=== PATIENT | male | born 1990 | race Caucasian/White ===

== ENCOUNTER 2016-12-15 11:51 | Emergency (ER) | payer BC, OTHER ==
[2016-12-15 12:03] VITALS: BP 141/74
[2016-12-15] MEDS ORDERED: ceFAZolin 1 GM Vial IM ONE (12:12)
[2016-12-15] MEDS ORDERED: Diphtheria,Pertussis(Acell),Tetanus Vaccine 0.5 ML SDV IM ONE (12:14)
--- NOTE | 2016-12-15 12:20 | EDM.PDOC ---
ED HPI GENERAL MEDICAL PROBLEM - General Chief Complaint: Lower Extremity Injury/Pain Stated Complaint: LT POINTER FINGER INJURY Time Seen by Provider: 12/15/16 12:00 Source of Information: Reports: Patient History Limitations: Reports: No Limitations - History of Present Illness INITIAL COMMENTS - FREE TEXT/NARRATIVE: Patient is a 26 year old male who presents to the E.D. complaining of mild pain , swelling, to the left index finger. States while painting his house with a pressure sprayer he accidentally activated the sprayer with finger on the tip injecting pain within his skin. States he was able to express alot of paint from the injection site with gentle massage. Swelling remains. This occurred approx 40 minutes prior to arrival. [place] was latex based. Tetanus status is between 9 to 10 years ago. He offers no additional complaints. Poison control contacted by patient with recommendations to come to the E.D. for surgical consultation. Treatments VETERINARY LABORATORY TECHNICIAN: Reports: Other (see below) Other Treatments VETERINARY LABORATORY TECHNICIAN: called poison control left 2nd finger Pain Score (Numeric/FACES): 3 - Related Data Allergies Allergy/AdvReac Type Severity Reaction Status Date / Time No Known Allergies Allergy Verified 12/15/16 12:03 Home Meds: Home Meds . [No Known Home Meds] 12/15/16 [History] Past Medical History - Past Health History Medical/Surgical History: Denies Medical/Surgical History Musculoskeletal History: Reports: Other (See Below) Other Musculoskeletal History: grade IV shoulder separation requiring repair - Past Surgical History GI Surgical History: Reports: Hernia, Abdominal Social & Family History - Family History Family Medical History: Noncontributory - Tobacco Use Smoking Status *Q: Never Smoker Second Hand Smoke Exposure: No - Caffeine Use Caffeine Use: Reports: None - Recreational Drug Use Recreational Drug Use: No Review of Systems - Review of Systems Review Of Systems: ROS reveals no pertinent complaints other than HPI. ED EXAM, GENERAL - Physical Exam Exam: See Below Exam Limited By: No Limitations General Appearance: Alert, WD/WN, No Apparent Distress Ears: Hearing Grossly Normal Nose: Normal Inspection Throat/Mouth: Normal Voice, No Airway Compromise Neck: Normal Inspection, Supple Respiratory/Chest: No Respiratory Distress, No Accessory Muscle Use Cardiovascular: Normal Peripheral Pulses, Regular Rate, Rhythm Peripheral Pulses: 2+: Radial (L) Extremities: Other (Left index finger: mild swelling with white color within the skin. Minimal pain. No redness or sensory/motor deficits. ) Neurological: Alert, Oriented, CN II-XII Intact, Normal Cognition, No Motor/ Sensory Deficits Psychiatric: Normal Affect, Normal Mood Skin Exam: Warm, Dry Course - Vital Signs Last Recorded V/S: Last Vital Signs Temp 97.4 F 12/15/16 11:57 Pulse 65 12/15/16 11:57 Resp 18 12/15/16 11:57 BP 141/74 H 12/15/16 11:57 Pulse Ox 98 12/15/16 11:57 - Orders/Labs/Meds Orders: Active Orders 24 hr Category Date Time Status Vaccines to be Administered [RC] PER UNIT ROUTINE Care 12/15/16 12:14 Active Meds: Medications Discontinued Medications Generic Name Dose Route Start Last Admin Trade Name Karina PRN Reason Stop Dose Admin Cefazolin Sodium 2 gm 12/15/16 12:12 12/15/16 12:24 Ancef IM 12/15/16 12:13 2 gm ONETIME ONE Administration Diphtheria/Tetanus/Acell Pertussis 0.5 ml 12/15/16 12:14 12/15/16 12:22 Adacel IM 12/15/16 12:15 0.5 ml .ONCE ONE Administration - Re-Assessments/Exams Free Text/Narrative Re-Assessment/Exam: [address] Rodriguez marketing content coordinator Orthopedic Surgeon with [facility] suggests immediate transfer to [facility], ancef 2 grams, and update tetanus. Patient requires debridement. Ancef and adacel ordered. is present and will transport patient to [facility]. Patient will remain NPO. Discharge instructions as documented. Departure - Departure Time of Disposition: 12:18 Disposition: DC/Tfer to Acute Hospital 02 Condition: Good Clinical Impression: Puncture wound of finger of left hand Qualifiers: Encounter type: initial encounter Qualified Code(s): S61.239A - Puncture wound without foreign body of unspecified finger without damage to nail, initial encounter - Discharge Information Referrals: PCP,None [Primary Care Provider] - Gustavo Rodriguez MD [Consulting Physician] - Forms: ED Department Discharge Additional Instructions: Go to the [facility] E.D in [place] and register. Dr. Rodriguez Orthopedic Surgeon with [facility] will see you in the E.D. Nothing by mouth to eat or drink during transport to [facility]. - My Orders Last 24 Hours: My Active Orders 12/15/16 12:14 Vaccines to be Administered [RC] PER UNIT ROUTINE - Assessment/Plan Last 24 Hours: My Active Orders 12/15/16 12:14 Vaccines to be Administered [RC] PER UNIT ROUTINE
== END 2016-12-15 12:35 ==
LOC: JD.ED 11:51
DX: S61.231A Puncture wound without foreign body of left index finger without damage to nail, initial encounter (principal); Z98.890 Other specified postprocedural states; X58.XXXA Exposure to other specified factors, initial encounter; Y93.89 Activity, other specified; Y92.009 Unspecified place in unspecified non-institutional (private) residence as the place of occurrence of the external cause; Z23 Encounter for immunization
CPT/HCPCS: 90471; 90715; 96372; 99284; J0690

== ENCOUNTER 2017-12-16 20:20 | Observation (INO) | payer OTHER ==
[2017-12-16] MEDS ORDERED: HYDROmorphone 1 MG/ML Syringe IVPUSH ONE (20:39)
[2017-12-16] MEDS ORDERED: Metoclopramide 10 MG/2 ML SDV IVPUSH ONE (20:39)
[2017-12-16] MEDS ORDERED: Lactated Ringers 1,000 ML IV ONE ×2 (20:39→22:32)
[2017-12-16] MEDS ORDERED: Sodium Chloride 0.9% 10 ML Syringe FLUSH PRN (20:39)
--- NOTE | 2017-12-16 20:47 | EDM.PDOC ---
ED HPI GENERAL MEDICAL PROBLEM - General Chief Complaint: Abdominal Pain Stated Complaint: RIGHT LOWER ABDOMINAL AND BACK PAIN Time Seen by Provider: 12/16/17 20:30 Source of Information: Reports: Patient History Limitations: Reports: No Limitations - History of Present Illness INITIAL COMMENTS - FREE TEXT/NARRATIVE: 27-year-old male presents for evaluation and treatment of abdominal pain. Patient reports the pain started this morning. Reports a gradual onset has worsened throughout the day. He did eat some breakfast last intake was around 0800. Reports a decreased appetite throughout the left remainder of the day. He reports pain is primarily in the right lower quadrant of his abdomen with a little bit of radiation to the right flank. He has been feeling nauseous and had one episode of emesis today. He reports feeling "gassy" earlier he did take some Pepto-Bismol but ultimately vomited this up. He denies any urinary symptoms including no dysuria or hematuria. No diarrhea. Reports that walking and movement significant worsen the abdominal pain. Previous abdominal surgeries include an abdominal hernia repair. Onset: Today, Gradual Location: Reports: Abdomen Right Lower Abdomen Pain Score (Numeric/FACES): 9 - Related Data Allergies Allergy/AdvReac Type Severity Reaction Status Date / Time No Known Allergies Allergy Verified 12/16/17 20:26 Home Meds: Home Meds . [No Known Home Meds] 12/15/16 [History] Past Medical History - Past Health History Medical/Surgical History: Denies Medical/Surgical History Cardiovascular History: Reports: Hypertension Musculoskeletal History: Reports: Other (See Below) Other Musculoskeletal History: grade IV shoulder separation requiring repair - Past Surgical History HEENT Surgical History: Reports: Oral Surgery GI Surgical History: Reports: Hernia, Abdominal Social & Family History - Family History Family Medical History: Noncontributory Cardiac: Reports: Hypertension - Tobacco Use Smoking Status *Q: Never Smoker - Caffeine Use Caffeine Use: Reports: None - Recreational Drug Use Recreational Drug Use: No ED ROS GENERAL - Review of Systems Review Of Systems: See Below Constitutional: Reports: Malaise, Decreased Appetite GI/Abdominal: Reports: Abdominal Pain, Nausea, Vomiting (x1). Denies: Diarrhea : Denies: Dysuria, Hematuria ED EXAM, GI/ABD - Physical Exam Exam: See Below Exam Limited By: No Limitations General Appearance: Alert, WD/WN, Mild Distress Throat/Mouth: Normal Inspection, Normal Lips, Normal Voice, No Airway Compromise Respiratory/Chest: No Respiratory Distress, Lungs Clear, Normal Breath Sounds Cardiovascular: Normal Peripheral Pulses, Regular Rate, Rhythm, No Murmur GI/Abdominal Exam: Normal Bowel Sounds, Guarding, Rebound, Tender (at [place]), Other (+ obturator sign, pain with heel percussion) Neurological: Alert, Oriented, Normal Cognition, Abnormal Gait (patinet is hunched over grabbing RLQ) Psychiatric: Normal Affect, Normal Mood Skin Exam: Warm, Dry, Normal Color Course - Vital Signs Last Recorded V/S: Last Vital Signs Temp 97.1 F 12/16/17 20:28 Pulse 68 12/16/17 20:28 Resp 18 12/16/17 20:28 BP 143/69 H 12/16/17 20:28 Pulse Ox 98 12/16/17 20:28 - Orders/Labs/Meds Orders: Active Orders 24 hr Category Date Time Status Peripheral IV Care [RC] . DIRECTED Care 12/16/17 20:39 Active Abdomen Pelvis w Cont [CT] Stat Exams 12/16/17 21:33 Taken UA W/MICROSCOPIC [URIN] Stat Lab 12/16/17 20:48 Ordered Lactated Ringers [Ringers, Lactated] 1,000 ml Med 12/16/17 22:32 Active IV .BOLUS Sodium Chloride 0.9% [Saline Flush] Med 12/16/17 20:39 Active 10 ml FLUSH ASDIRECTED PRN Peripheral IV Insertion Adult [OM.PC] Routine Oth 12/16/17 20:39 Ordered Medication Orders Lactated Ringer's (Ringers, Lactated) 1,000 mls @ 150 mls/hr IV .BOLUS ONE Stop: 12/17/17 05:11 Last Admin: 12/16/17 23:15 Dose: 150 mls/hr Sodium Chloride (Saline Flush) 10 ml FLUSH ASDIRECTED PRN PRN Reason: Keep Vein Open Last Admin: 12/16/17 20:51 Dose: 10 ml Labs: Laboratory Tests 12/16/17 12/16/17 12/16/17 Range/Units 20:48 20:50 20:50 WBC 14.06 H (4.23-9.07) K/mm3 RBC 5.12 (4.63-6.08) M/mm3 Hgb 15.8 (13.7-17.5) gm/L Hct 43.8 (40.1-51.0) % MCV 85.5 (79.0-92.2) fl MCH 30.9 (25.7-32.2) pg MCHC 36.1 H (32.2-35.5) g/dl RDW Std Deviation 39.5 (35.1-43.9) fL Plt Count 224 (163-337) K/mm3 MPV 9.0 L (9.4-12.3) fl Neutrophils % (Manual) 87 H (40-60) % Band Neutrophils % 0 (0-10) % Lymphocytes % (Manual) 11 L (20-40) % Atypical Lymphs % 0 % Monocytes % (Manual) 0 L (2-10) % Eosinophils % (Manual) 2 (0.8-7.0) % Basophils % (Manual) 0 L (0.2-1.2) Platelet Estimate Adequate RBC Morph Comment Normal Sodium 141 (136-145) mEq/L Potassium 3.7 (3.5-5.1) mEq/L Chloride 104 (98-107) mEq/L Carbon Dioxide 28 (21-32) mEq/L Anion Gap 12.7 (5-15) BUN 12 (7-18) mg/dL Creatinine 1.0 (0.7-1.3) mg/dL Est Cr Clr Drug Dosing 112.54 mL/min Estimated GFR (MDRD) > 60 (>60) mL/min BUN/Creatinine Ratio 12.0 L (14-18) Glucose 124 H (74-106) mg/dL Calcium 9.0 (8.5-10.1) mg/dL Total Bilirubin 1.8 H (0.2-1.0) mg/dL AST 20 (15-37) U/L ALT 30 (16-63) U/L Alkaline Phosphatase 61 (46-116) U/L C-Reactive Protein 0.2 (<1.0) mg/dL Total Protein 7.5 (6.4-8.2) g/dl Albumin 4.3 (3.4-5.0) g/dl Globulin 3.2 gm/dL Albumin/Globulin Ratio 1.3 (1-2) Urine Color Yellow (Yellow) Urine Appearance Clear (Clear) Urine pH 6.0 (5.0-8.0) Ur Specific [place] > or = 1.030 (1.005-1.030) Urine Protein Trace H (Negative) Urine Glucose (UA) Negative (Negative) Urine Ketones Trace H (Negative) Urine Occult Blood Negative (Negative) Urine Nitrite Negative (Negative) Urine Bilirubin Negative (Negative) Urine Urobilinogen 0.2 (0.2-1.0) Ur Leukocyte Esterase Negative (Negative) Urine RBC Not seen (0-5) /hpf Urine WBC 0-5 (0-5) /hpf Ur Epithelial Cells 0-5 (0-5) /hpf Urine Bacteria Few (FEW) /hpf Urine Mucus Not seen (FEW) /hpf Meds: Medications Generic Name Dose Route Start Last Admin Trade Name Freq PRN Reason Stop Dose Admin Lactated Ringer's 1,000 mls @ 150 mls/hr 12/16/17 22:32 12/16/17 23:15 Ringers, Lactated IV 12/17/17 05:11 150 mls/hr .BOLUS ONE Administration Sodium Chloride 10 ml 12/16/17 20:39 12/16/17 20:51 Saline Flush FLUSH 10 ml ASDIRECTED PRN Administration Keep Vein Open Discontinued Medications Generic Name Dose Route Start Last Admin Trade Name Freq PRN Reason Stop Dose Admin Hydromorphone HCl 1 mg 12/16/17 20:39 12/16/17 20:50 Dilaudid IVPUSH 12/16/17 20:40 1 mg ONETIME ONE Administration Hydromorphone HCl 0.5 mg 12/16/17 22:16 12/16/17 22:27 Dilaudid IVPUSH 12/16/17 22:17 0.5 mg ONETIME ONE Administration Hydromorphone HCl 0.5 mg 12/16/17 22:59 Dilaudid IVPUSH 12/16/17 23:00 ONETIME ONE Lactated Ringer's 1,000 mls @ 999 mls/hr 12/16/17 20:39 12/16/17 20:50 Ringers, Lactated IV 12/16/17 21:39 999 mls/hr .BOLUS ONE Administration Piperacillin Sod/Tazobactam 100 mls @ 200 mls/hr 12/16/17 22:31 12/16/17 22: 44 Sod 4.5 gm/ Sodium Chloride IV 12/16/17 23:00 200 mls/hr ONETIME ONE Administration Iopamidol 125 ml 12/16/17 21:56 12/16/17 22:08 Isovue-300 (61%) IVPUSH 12/16/17 21:57 125 ml ONETIME ONE Administration Metoclopramide HCl 7.5 mg 12/16/17 20:39 12/16/17 20:50 Reglan IVPUSH 12/16/17 20:40 7.5 mg ONETIME ONE Administration Sodium Chloride 10 ml 12/16/17 21:56 12/16/17 22:09 Saline Flush FLUSH 12/16/17 21:57 10 ml ONETIME ONE Administration - Radiology Interpretation Free Text/Narrative:: CT of the abdomen and pelvis with IV contrast impression per vrad: uncomplicated acute appendicitis - Re-Assessments/Exams Free Text/Narrative Re-Assessment/Exam: 12/16/17 22:[address] James, surgery medication nurse. Plan will be to take to the OR for a lap appendectomy. Asked that we start Zosyn in the meantime. 12/17/17 00:11 Dr. Gustafson will take the patient to the OR tomorrow morning. Observation admission tonight. Departure - Departure Time of Disposition: 00:13 Disposition: Refer to Observation Condition: Fair Clinical Impression: Appendicitis - Discharge Information *PRESCRIPTION DRUG MONITORING PROGRAM REVIEWED*: No *COPY OF PRESCRIPTION DRUG MONITORING REPORT IN PATIENT [place]: No Referrals: PCP,None [Primary Care Provider] - Forms: ED Department Discharge Additional Instructions: Patient to be admitted for observation tonight. Plan to take to the OR tomorrow morning for a lap appendectomy. - My Orders Last 24 Hours: My Active Orders 12/16/17 20:39 Peripheral IV Care [RC] . DIRECTED Sodium Chloride 0.9% [Saline Flush] 10 ml FLUSH ASDIRECTED PRN Peripheral IV Insertion Adult [OM.PC] Routine 12/16/17 20:48 UA W/MICROSCOPIC [URIN] Stat 12/16/17 21:33 Abdomen Pelvis w Cont [CT] Stat 12/16/17 22:32 Lactated Ringers [Ringers, Lactated] 1,000 ml IV .BOLUS - Assessment/Plan Last 24 Hours: My Active Orders 12/16/17 20:39 Peripheral IV Care [RC] . DIRECTED Sodium Chloride 0.9% [Saline Flush] 10 ml FLUSH ASDIRECTED PRN Peripheral IV Insertion Adult [OM.PC] Routine 12/16/17 20:48 UA W/MICROSCOPIC [URIN] Stat 12/16/17 21:33 Abdomen Pelvis w Cont [CT] Stat 12/16/17 22:32 Lactated Ringers [Ringers, Lactated] 1,000 ml IV .BOLUS
[2017-12-16] MEDS ORDERED: Iopamidol 612 MG/ML 150 ML Bottle IVPUSH ONE (21:56)
[2017-12-16] MEDS ORDERED: Sodium Chloride 0.9% 10 ML Syringe FLUSH ONE (21:56)
[2017-12-16] MEDS ORDERED: HYDROmorphone 0.5 MG/0.5 ML SYRINGE IVPUSH ONE ×2 (22:16→22:59)
[2017-12-16] MEDS ORDERED: Piperacillin/Tazobactam 4.5 GM in Sodium Chloride 0.9% 100 ML IV ONE (22:31)
[2017-12-17] MEDS ORDERED: Ondansetron 4 MG/2 ML SDV IV PRN (00:47)
[2017-12-17] MEDS ORDERED: HYDROmorphone 0.5 MG/0.5 ML SYRINGE IVPUSH PRN (00:49)
[2017-12-17] MEDS ORDERED: Ondansetron 4 MG/2 ML SDV IVPUSH ONE (00:54)
--- NOTE | 2017-12-17 00:55 | PCM.HP ---
H&P History of Present Illness - General Date of Service: 12/17/17 Admit Problem/Dx: Admission Diagnosis/Problem Admission Diagnosis/Problem Acute appendicitis Source of Information: Patient History Limitations: Reports: No Limitations - History of Present Illness Initial Comments - Free Text/Narative: 27 yo male, presents with abdominal that started this morning at around 0800 ( approx 14 hours prior to my evaluation), which started in the RLQ. Pain got progressively worse, peaking at 10/10, prompting the patient to come to the ER. Currently, pain is rated 7/10. Pain has been associated with nausea and emesis x1. He had decreased appetite, so his last meal was at around 0800. No prior episode of this kind of pain. In the ER, the patient received multiple doses of Dilaudid IV, a dose of Reglan , and NS bolus. Right Lower Abdomen Pain Score (Numeric/FACES): 9 - Related Data Allergies/Adverse Reactions: Allergies Allergy/AdvReac Type Severity Reaction Status Date / Time No Known Allergies Allergy Verified 12/16/17 20:26 Home Medications: Home Meds . [No Known Home Meds] 12/15/16 [History] Past Medical History Cardiovascular History: Reports: Hypertension (Patient takes one medication for HTN, but does not remember the name.) Musculoskeletal History: Reports: Other (See Below) Other Musculoskeletal History: grade IV shoulder separation requiring repair - Past Surgical History HEENT Surgical History: Reports: Oral Surgery GI Surgical History: Reports: Hernia, Abdominal (Inguinal hernia repair at age 3.) Musculoskeletal Surgical History: Reports: Other (See Below) (LEFT finger surgery) Social & Family History - Family History Family Medical History: Noncontributory Cardiac: Reports: Hypertension - Tobacco Use Smoking Status *Q: Never Smoker - Caffeine Use Caffeine Use: Reports: None - Alcohol Use Alcohol Use History: No Alcohol Use Comment: Never drank EtOH. - Recreational Drug Use Recreational Drug Use: No - Living Situation & Occupation Living situation: Reports: , with Family Occupation: Employed (Runs an [employer]) H&P Review of Systems - Review of Systems: Review Of Systems: ROS reveals no pertinent complaints other than HPI. Exam - Exam Exam: See Below - Vital Signs Vital Signs: Last Vital Signs Temp 36.2 C 12/16/17 20:28 Pulse 68 12/16/17 20:28 Resp 18 12/16/17 20:28 BP 143/69 H 12/16/17 20:28 Pulse Ox 98 12/16/17 20:28 Weight: 98.883 kg - Exam General: Alert, Oriented, Cooperative HEENT: Conjunctiva Clear Neck: Supple Lungs: Clear to Auscultation, Normal Respiratory Effort Cardiovascular: Regular Rate, Regular Rhythm, Normal S1, Normal S2. No: Systolic Murmur GI/Abdominal Exam: Soft, No Distention, Tender (Tender to the RLQ with focal peritonitis) Extremities: Normal Inspection Skin: Warm, Intact Neuro Extensive - Mental Status: Alert, Normal Mood/Affect, Normal Cognition, Memory Intact Psychiatric: Alert, Normal Affect, Normal Mood - Patient Data Lab Results Last 24 hrs: Laboratory Results - last 24 hr 12/16/17 12/16/17 12/16/17 Range/Units 20:48 20:50 20:50 WBC 14.06 H (4.23-9.07) K/mm3 RBC 5.12 (4.63-6.08) M/mm3 Hgb 15.8 (13.7-17.5) gm/L Hct 43.8 (40.1-51.0) % MCV 85.5 (79.0-92.2) fl MCH 30.9 (25.7-32.2) pg MCHC 36.1 H (32.2-35.5) g/dl RDW Std Deviation 39.5 (35.1-43.9) fL Plt Count 224 (163-337) K/mm3 MPV 9.0 L (9.4-12.3) fl Neutrophils % (Manual) 87 H (40-60) % Band Neutrophils % 0 (0-10) % Lymphocytes % (Manual) 11 L (20-40) % Atypical Lymphs % 0 % Monocytes % (Manual) 0 L (2-10) % Eosinophils % (Manual) 2 (0.8-7.0) % Basophils % (Manual) 0 L (0.2-1.2) Platelet Estimate Adequate RBC Morph Comment Normal Sodium 141 (136-145) mEq/L Potassium 3.7 (3.5-5.1) mEq/L Chloride 104 (98-107) mEq/L Carbon Dioxide 28 (21-32) mEq/L Anion Gap 12.7 (5-15) BUN 12 (7-18) mg/dL Creatinine 1.0 (0.7-1.3) mg/dL Est Cr Clr Drug Dosing 112.54 mL/min Estimated GFR (MDRD) > 60 (>60) mL/min BUN/Creatinine Ratio 12.0 L (14-18) Glucose 124 H (74-106) mg/dL Calcium 9.0 (8.5-10.1) mg/dL Total Bilirubin 1.8 H (0.2-1.0) mg/dL AST 20 (15-37) U/L ALT 30 (16-63) U/L Alkaline Phosphatase 61 (46-116) U/L C-Reactive Protein 0.2 (<1.0) mg/dL Total Protein 7.5 (6.4-8.2) g/dl Albumin 4.3 (3.4-5.0) g/dl Globulin 3.2 gm/dL Albumin/Globulin Ratio 1.3 (1-2) Urine Color Yellow (Yellow) Urine Appearance Clear (Clear) Urine pH 6.0 (5.0-8.0) Ur Specific [place] > or = 1.030 (1.005-1.030) Urine Protein Trace H (Negative) Urine Glucose (UA) Negative (Negative) Urine Ketones Trace H (Negative) Urine Occult Blood Negative (Negative) Urine Nitrite Negative (Negative) Urine Bilirubin Negative (Negative) Urine Urobilinogen 0.2 (0.2-1.0) Ur Leukocyte Esterase Negative (Negative) Urine RBC Not seen (0-5) /hpf Urine WBC 0-5 (0-5) /hpf Ur Epithelial Cells 0-5 (0-5) /hpf Urine Bacteria Few (FEW) /hpf Urine Mucus Not seen (FEW) /hpf Result Diagrams: 12/16/17 20:50 12/16/17 20:50 Imaging Impressions Last 24 hrs: CT scan Abd/Pelvis with IV contrast: Dilated appendix with mild surrounding inflammatory changes. No evidence of perforation. Problem List Initiated/Reviewed/Updated: Yes Orders Last 24hrs: Active Orders 24 hr Category Date Time Status Patient Status [ADT] Routine ADT 12/17/17 00:47 Active Oxygen Therapy [RC] PRN Care 12/17/17 00:47 Active Peripheral IV Care [RC] . DIRECTED Care 12/16/17 20:39 Active VTE/DVT Education [RC] PER UNIT ROUTINE Care 12/17/17 00:47 Active Vital Signs [RC] Q4H Care 12/17/17 00:47 Active Nothing per Oral Now Diet [DIET] Diet 12/17/17 Breakfast Active Abdomen Pelvis w Cont [CT] Stat Exams 12/16/17 21:33 Taken UA W/MICROSCOPIC [URIN] Stat Lab 12/16/17 20:48 Ordered HYDROmorphone [Dilaudid] Med 12/17/17 00:49 Ordered 0.5 mg IVPUSH Q2H PRN Lactated Ringers [Ringers, Lactated] 1,000 ml Med 12/16/17 22:32 Active IV .BOLUS Ondansetron [Zofran] Med 12/17/17 00:47 Ordered 4 mg IV Q4H PRN Piperacillin/Tazobactam [Zosyn] 4.5 gm Med 12/17/17 07:00 Ordered Sodium Chloride 0.9% [Normal Saline] 100 ml IV ONETIME Sodium Chloride 0.9% [Saline Flush] Med 12/16/17 20:39 Active 10 ml FLUSH ASDIRECTED PRN Peripheral IV Insertion Adult [OM.PC] Routine Oth 12/16/17 20:39 Ordered Schedule Procedure [COMM] Urgent Oth 12/17/17 08:00 Ordered Sequential Compression Device [OM.PC] Per Unit Routine Oth 12/17/17 00:48 Ordered Resuscitation Status Routine Resus Stat 12/17/17 00:47 Ordered Medication Orders Hydromorphone HCl (Dilaudid) 0.5 mg IVPUSH Q2H PRN PRN Reason: Pain Lactated Ringer's (Ringers, Lactated) 1,000 mls @ 150 mls/hr IV .BOLUS ONE Stop: 12/17/17 05:11 Last Admin: 12/16/17 23:15 Dose: 150 mls/hr Piperacillin Sod/Tazobactam (Sod 4.5 gm/ Sodium Chloride) 100 mls @ 25 mls/hr IV ONETIME ONE Stop: 12/17/17 10:59 Ondansetron HCl (Zofran) 4 mg IV Q4H PRN PRN Reason: Nausea/Vomiting Sodium Chloride (Saline Flush) 10 ml FLUSH ASDIRECTED PRN PRN Reason: Keep Vein Open Last Admin: 12/16/17 20:51 Dose: 10 ml Assessment/Plan Comment:: 27 yo male, h/o HTN, with acute appendicitis. - Admit, NPO, IV fluids. - IV Zosyn. - The patient was consented for laparoscopic appendectomy, possible open. Indications, risks, and benefits were discussed with the patient in detail. Risks include bleeding, infection, damage to surrounding structures, need for additional procedures, DVT/PE, HI, CVA, and . The plan of care was discussed with the patient and his . Ej James M.D., F.A.C.S. General Surgery Pager: [phone]
[2017-12-17] MEDS ORDERED: Lactated Ringers 1,000 ML IV SCH (01:45)
[2017-12-17] MEDS ORDERED: Sodium Chloride 0.9% 1,000 ML IV SCH (06:00)
[2017-12-17] MEDS ORDERED: Piperacillin/Tazobactam 4.5 GM in Sodium Chloride 0.9% 100 ML IV ONE (07:00)
[2017-12-17] MEDS ORDERED: Lidocaine 1% with EPINEPHrine 1:100,000 20 ML MDV ONE (07:06)
[2017-12-17] MEDS ORDERED: Bupivacaine 0.25% 30 ML SDV ONE (07:06)
[2017-12-17] MEDS ORDERED: Propofol 200 MG/20 ML SDV ONE ×2 (07:15→07:46)
[2017-12-17] MEDS ORDERED: Midazolam 1 MG/ML 2 ML SDV ONE (07:15)
[2017-12-17] MEDS ORDERED: fentaNYL 250 MCG/5 ML SDV ONE (07:15)
[2017-12-17] MEDS ORDERED: ceFAZolin 1 GM Vial ONE (07:15)
[2017-12-17] MEDS ORDERED: Ondansetron 4 MG/2 ML SDV ONE (07:15)
[2017-12-17] MEDS ORDERED: Ketorolac 30 MG/ML SDV ONE (07:16)
[2017-12-17] MEDS ORDERED: Dexamethasone 4 MG/ML SDV ONE (07:16)
[2017-12-17] MEDS ORDERED: Rocuronium 50 MG/5 ML Vial ONE (07:19)
[2017-12-17] MEDS ORDERED: Succinylcholine/Normal Saline 100 MG/5 ML Syringe ONE (07:19)
--- NOTE | 2017-12-17 07:33 | PCM.PREANE ---
Preanesthetic Assessment - Anesthesia/Transfusion/Family Hx Anesthesia History: Prior Anesthesia Without Reaction Family History of Anesthesia Reaction: No Transfusion History: No Prior Transfusion(s) - Review of Systems General: Fatigue, Appetite Pulmonary: No Symptoms Cardiovascular: No Symptoms, Other (Hypertension) Gastrointestinal: Abdominal Pain, Decreased Appetite, Nausea, Vomiting Neurological: No Symptoms Other: Reports: None - Physical Assessment NPO Status Date: 12/16/17 NPO Status Time: 16:30 Pulse: 64 O2 Sat by Pulse Oximetry: 98 Respiratory Rate: 18 Blood Pressure: 121/56 Temperature: 36.7 C Vital Signs: Last Vital Signs Temp 36.7 C 12/17/17 06:19 Pulse 64 12/17/17 06:19 Resp 18 12/17/17 06:19 BP 121/56 L 12/17/17 06:19 Pulse Ox 98 12/17/17 06:19 Height: 1.78 m Weight: 96.615 kg ASA Class: 2 Mental Status: Alert & Oriented x3 Airway Class: Mallampati = 1 Dentition: Reports: Normal Dentition Thyro-Mental Finger Breadths: 3 Mouth Opening Finger Breadths: 3 ROM/Head Extension: Full Lungs: Clear to Auscultation, Normal Respiratory Effort Cardiovascular: Regular Rate, Regular Rhythm - Lab Values: Laboratory Last Values WBC 14.06 K/mm3 (4.23-9.07) H 12/16/17 20:50 RBC 5.12 M/mm3 (4.63-6.08) 12/16/17 20:50 Hgb 15.8 gm/L (13.7-17.5) 12/16/17 20:50 Hct 43.8 % (40.1-51.0) 12/16/17 20:50 MCV 85.5 fl (79.0-92.2) 12/16/17 20:50 MCH 30.9 pg (25.7-32.2) 12/16/17 20:50 MCHC 36.1 g/dl (32.2-35.5) H 12/16/17 20:50 RDW Std Deviation 39.5 fL (35.1-43.9) 12/16/17 20:50 Plt Count 224 K/mm3 (163-337) 12/16/17 20:50 MPV 9.0 fl (9.4-12.3) L 12/16/17 20:50 Neutrophils % (Manual) 87 % (40-60) H 12/16/17 20:50 Band Neutrophils % 0 % (0-10) 12/16/17 20:50 Lymphocytes % (Manual) 11 % (20-40) L 12/16/17 20:50 Atypical Lymphs % 0 % 12/16/17 20:50 Monocytes % (Manual) 0 % (2-10) L 12/16/17 20:50 Eosinophils % (Manual) 2 % (0.8-7.0) 12/16/17 20:50 Basophils % (Manual) 0 (0.2-1.2) L 12/16/17 20:50 Platelet Estimate Adequate 12/16/17 20:50 RBC Morph Comment Normal 12/16/17 20:50 Sodium 141 mEq/L (136-145) 12/16/17 20:50 Potassium 3.7 mEq/L (3.5-5.1) 12/16/17 20:50 Chloride 104 mEq/L (98-107) 12/16/17 20:50 Carbon Dioxide 28 mEq/L (21-32) 12/16/17 20:50 Anion Gap 12.7 (5-15) 12/16/17 20:50 BUN 12 mg/dL (7-18) 12/16/17 20:50 Creatinine 1.0 mg/dL (0.7-1.3) 12/16/17 20:50 Est Cr Clr Drug Dosing 112.54 mL/min 12/16/17 20:50 Estimated GFR (MDRD) > 60 mL/min (>60) 12/16/17 20:50 BUN/Creatinine Ratio 12.0 (14-18) L 12/16/17 20:50 Glucose 124 mg/dL (74-106) H 12/16/17 20:50 Calcium 9.0 mg/dL (8.5-10.1) 12/16/17 20:50 Total Bilirubin 1.8 mg/dL (0.2-1.0) H 12/16/17 20:50 AST 20 U/L (15-37) 12/16/17 20:50 ALT 30 U/L (16-63) 12/16/17 20:50 Alkaline Phosphatase 61 U/L (46-116) 12/16/17 20:50 C-Reactive Protein 0.2 mg/dL (<1.0) 12/16/17 20:50 Total Protein 7.5 g/dl (6.4-8.2) 12/16/17 20:50 Albumin 4.3 g/dl (3.4-5.0) 12/16/17 20:50 Globulin 3.2 gm/dL 12/16/17 20:50 Albumin/Globulin Ratio 1.3 (1-2) 12/16/17 20:50 Urine Color Yellow (Yellow) 12/16/17 20:48 Urine Appearance Clear (Clear) 12/16/17 20:48 Urine pH 6.0 (5.0-8.0) 12/16/17 20:48 Ur Specific [place] > or = 1.030 (1.005-1.030) 12/16/17 20:48 Urine Protein Trace (Negative) H 12/16/17 20:48 Urine Glucose (UA) Negative (Negative) 12/16/17 20:48 Urine Ketones Trace (Negative) H 12/16/17 20:48 Urine Occult Blood Negative (Negative) 12/16/17 20:48 Urine Nitrite Negative (Negative) 12/16/17 20:48 Urine Bilirubin Negative (Negative) 12/16/17 20:48 Urine Urobilinogen 0.2 (0.2-1.0) 12/16/17 20:48 Ur Leukocyte Esterase Negative (Negative) 12/16/17 20:48 Urine RBC Not seen /hpf (0-5) 12/16/17 20:48 Urine WBC 0-5 /hpf (0-5) 12/16/17 20:48 Ur Epithelial Cells 0-5 /hpf (0-5) 12/16/17 20:48 Urine Bacteria Few /hpf (FEW) 12/16/17 20:48 Urine Mucus Not seen /hpf (FEW) 12/16/17 20:48 - Allergies Allergies/Adverse Reactions: Allergies Allergy/AdvReac Type Severity Reaction Status Date / Time No Known Allergies Allergy Verified 12/17/17 01:43 - Acknowledgements Anesthesia Type Planned: General Anesthesia Pt an Appropriate Candidate for the Planned Anesthesia: Yes Alternatives and Risks of Anesthesia Discussed w Pt/Guardian: Yes Pt/Guardian Understands and Agrees with Anesthesia Plan: Yes PreAnesthesia Questionnaire - Past Health History Medical/Surgical History: Denies Medical/Surgical History Cardiovascular History: Reports: Hypertension (Patient takes one medication for HTN, but does not remember the name.) Musculoskeletal History: Reports: Other (See Below) Other Musculoskeletal History: grade IV shoulder separation requiring repair - Past Surgical History HEENT Surgical History: Reports: Oral Surgery GI Surgical History: Reports: Hernia, Abdominal (Inguinal hernia repair at age 3.) Musculoskeletal Surgical History: Reports: Other (See Below) (LEFT finger surgery) - SUBSTANCE USE Smoking Status *Q: Never Smoker Second Hand Smoke Exposure: No Recreational Drug Use History: No - HOME MEDS Home Medications: Home Meds . [No Known Home Meds] 12/15/16 [History] - CURRENT (IN HOUSE) MEDS Current Meds: Current Medications Hydromorphone HCl (Dilaudid) 0.5 mg IVPUSH Q2H PRN PRN Reason: Pain Last Admin: 12/17/17 06:42 Dose: 0.5 mg Piperacillin Sod/Tazobactam (Sod 4.5 gm/ Sodium Chloride) 100 mls @ 25 mls/hr IV ONETIME ONE Stop: 12/17/17 10:59 Last Admin: 12/17/17 06:18 Dose: 25 mls/hr Sodium Chloride (Normal Saline) 1,000 mls @ 100 mls/hr IV ASDIRECTED LG Last Admin: 12/17/17 06:18 Dose: 100 mls/hr Ondansetron HCl (Zofran) 4 mg IV Q4H PRN PRN Reason: Nausea/Vomiting Sodium Chloride (Saline Flush) 10 ml FLUSH ASDIRECTED PRN PRN Reason: Keep Vein Open Last Admin: 12/16/17 20:51 Dose: 10 ml Discontinued Medications Bupivacaine HCl (Marcaine 0.25%) Confirm Administered Dose 30 ml .ROUTE .STK- MED ONE Stop: 12/17/17 07:07 Cefazolin Sodium (Ancef) Confirm Administered Dose 2 gm .ROUTE .STK-MED ONE Stop: 12/17/17 07:16 Dexamethasone (Dexamethasone) Confirm Administered Dose 8 mg .ROUTE .STK-MED ONE Stop: 12/17/17 07:17 Fentanyl (Sublimaze) Confirm Administered Dose 250 mcg .ROUTE .STK-MED ONE Stop: 12/17/17 07:16 Hydromorphone HCl (Dilaudid) 1 mg IVPUSH ONETIME ONE Stop: 12/16/17 20:40 Last Admin: 12/16/17 20:50 Dose: 1 mg Hydromorphone HCl (Dilaudid) 0.5 mg IVPUSH ONETIME ONE Stop: 12/16/17 22:17 Last Admin: 12/16/17 22:27 Dose: 0.5 mg Hydromorphone HCl (Dilaudid) 0.5 mg IVPUSH ONETIME ONE Stop: 12/16/17 23:00 Last Admin: 12/17/17 00:52 Dose: 0.5 mg Lactated Ringer's (Ringers, Lactated) 1,000 mls @ 999 mls/hr IV .BOLUS ONE Stop: 12/16/17 21:39 Last Admin: 12/16/17 20:50 Dose: 999 mls/hr Piperacillin Sod/Tazobactam (Sod 4.5 gm/ Sodium Chloride) 100 mls @ 200 mls/hr IV ONETIME ONE Stop: 12/16/17 23:00 Last Admin: 12/16/17 22:44 Dose: 200 mls/hr Lactated Ringer's (Ringers, Lactated) 1,000 mls @ 150 mls/hr IV .BOLUS ONE Stop: 12/17/17 05:11 Last Admin: 12/16/17 23:15 Dose: 150 mls/hr Lactated Ringer's (Ringers, Lactated) 1,000 mls @ 100 mls/hr IV ASDIRECTED LG Iopamidol (Isovue-300 (61%)) 125 ml IVPUSH ONETIME ONE Stop: 12/16/17 21:57 Last Admin: 12/16/17 22:08 Dose: 125 ml Ketorolac Tromethamine (Toradol) Confirm Administered Dose 30 mg .ROUTE .STK- MED ONE Stop: 12/17/17 07:17 Lidocaine/Epinephrine (Xylocaine 1% With Epinephrine 1:100,000) Confirm Administered Dose 20 ml .ROUTE .STK-MED ONE Stop: 12/17/17 07:07 Metoclopramide HCl (Reglan) 7.5 mg IVPUSH ONETIME ONE Stop: 12/16/17 20:40 Last Admin: 12/16/17 20:50 Dose: 7.5 mg Midazolam HCl (Versed 1 Mg/Ml) Confirm Administered Dose 2 mg .ROUTE .STK-MED ONE Stop: 12/17/17 07:16 Ondansetron HCl (Zofran) 4 mg IVPUSH ONETIME ONE Stop: 12/17/17 00:55 Last Admin: 12/17/17 00:56 Dose: 4 mg Ondansetron HCl (Zofran) Confirm Administered Dose 4 mg .ROUTE .STK-MED ONE Stop: 12/17/17 07:16 Propofol (Diprivan 20 Ml) Confirm Administered Dose 200 mg .ROUTE .STK-MED ONE Stop: 12/17/17 07:16 Rocuronium [place] (Zemuron) Confirm Administered Dose 50 mg .ROUTE .STK-MED ONE Stop: 12/17/17 07:20 Sodium Chloride (Saline Flush) 10 ml FLUSH ONETIME ONE Stop: 12/16/17 21:57 Last Admin: 12/16/17 22:09 Dose: 10 ml Succinylcholine Chloride (Succinylcholine In Ns Pf) Confirm Administered Dose 100 mg .ROUTE .STK-MED ONE Stop: 12/17/17 07:20
[2017-12-17] MEDS ORDERED: Bupivacaine 0.5% 30 ML SDV ONE (07:56)
[2017-12-17] MEDS ORDERED: Lidocaine 1% 4 ML ONE (08:07)
[2017-12-17] MEDS ORDERED: Lactated Ringers 1,000 ML ONE ×2 (08:39)
[2017-12-17] MEDS ORDERED: Meperidine 50 MG/ML Vial IVPUSH PRN (08:43)
[2017-12-17] MEDS ORDERED: HYDROmorphone 0.5 MG/0.5 ML Syringe IVPUSH PRN (08:43)
[2017-12-17] MEDS ORDERED: Haloperidol Lactate 5 MG/ML SDV IVPUSH ONE (08:43)
[2017-12-17] MEDS ORDERED: ePHEDrine 50 MG/ML SDV IVPUSH PRN (08:43)
[2017-12-17] MEDS ORDERED: diphenhydrAMINE 50 MG/ML SDV IVPUSH PRN (08:43)
[2017-12-17] MEDS ORDERED: fentaNYL 100 MCG/2 ML SDV IVPUSH PRN (08:43)
[2017-12-17] MEDS ORDERED: Neostigmine Methylsulfate 1 MG/ML 5 ML Syringe ONE (09:01)
--- NOTE | 2017-12-17 09:14 | PCM.OPNOTE ---
- General Post-Op/Procedure Note Date of Surgery/Procedure: 12/17/17 Operative Procedure(s): laparoscopic appendectomy Findings: inflamed appendix with a small amount of cloudy fluid around the RLQ and in the pelvis Pre Op Diagnosis: acute appendicitis Post-Op Diagnosis: acute suppurative appendicitis Anesthesia Technique: General ET Tube Primary Surgeon: Ej James Anesthesia Provider: Gabriella Martines Pathology: appendix Fluid Replacement, Intraop: 1,500 (crystalloid) Output, Urine Amount: 50 EBL in mLs: 2 Complications: None Condition: Good Free Text/Narrative:: Intake & Output 12/16/17 12/17/17 12/17/17 22:59 06:59 14:59 Intake Total 700 Output Total 400 Balance 300 Indications for surgery: The patient is a 27 yo male who presents with acute appendicitis. The patient was consented for laparoscopic appendectomy, possible open. Indications, risks, and benefits were discussed with the patient in detail. Description of procedure: After surgical consent was verified, the patient was brought to the main OR. Anesthesia performed general endotracheal intubation without complications. Appropriate padding and straps were placed. SCD's were on and functioning. The patient had been receiving ongoing IV Zosyn. A Barnes catheter and OG tube were inserted. A surgical time-out was performed to verify proper patient, proper site, and proper procedure. Local anesthetic (1:1 solution of 1% lidocaine with epinephrine and 0.25% bupivacaine) was injected at Buckley's point in the LUQ. A 5 mm incision was made , and a Veress needle was inserted. The abdomen was insufflated to 15 mmHg without complications. Using the Optview technique, a 5 mm trocar was inserted. The laparoscope was inserted, and there was no evidence of intra-abdominal injury from trocar placement. Additional trocars were placed: a 12 mm trocar in the left lower quadrant and a 5 mm trocar in the suprapubic region. The patient was re-positioned to Trendelenburg with LEFT side down. The appendix was identified and noted to be thickened, inflamed, and suppurative. There was a small amount of surrounding cloudy fluid. A window was made in the mesoappendix at the appendiceal base. A 45 mm blue load laparoscopic stapler was used to divide the appendiceal base. A laparoscopic Ligasure device was used to divide through the thickened and inflamed mesoappendix. The appendix was placed in an Endocatch bag and removed through the 12 mm trocar site. The pelvis was inspected, and there was a small amount of cloudy fluid that was suctioned out. Hemostasis was ensured. The 12 mm trocar site was closed with an interrupted 0-Vicryl suture x2 via a transfascial suture passer. The suprapubic trocar was removed under direct visualization, and the abdomen was allowed to desufflate. The remaining LUQ trocar was removed. The skin was closed with 4-0 Monocryl and covered with Dermabond. The patient tolerated the procedure well, was extubated, and transported to the PACU in stable condition. At the end of the case, all needle, instrument, and gauze counts were correct. The Barnes catheter and OG tube were removed. I was present and scrubbed for the entirety of the case. Ej James M.D., F.A.C.S. General Surgery Pager: [phone]
--- NOTE | 2017-12-17 09:28 | PCM.POSTAN ---
POST ANESTHESIA ASSESSMENT - MENTAL STATUS Mental Status: Somnolent - VITAL SIGNS Pulse Rate: 76 SaO2: 98 Resp Rate: 14 Blood Pressure: 100/57 Temperature: 36.9 C - RESPIRATORY Respiratory Status: Respiratory Rate WNL, Airway Patent, O2 Saturation Stable, Supplemental Oxygen - CARDIOVASCULAR CV Status: Pulse Rate WNL, Blood Pressure Stable - GASTROINTESTINAL GI Status: No Symptoms - PAIN Pain Score: 0 - POST OP HYDRATION Hydration Status: Adequate & Stable
[2017-12-17] MEDS: Acetaminophen/oxyCODONE 325-5 MG Tab PO PRN ×3 (12:03→21:02)
--- NOTE | 2017-12-17 14:07 | CT ---
CT abdomen and pelvis Technique: Multiple axial sections were obtained from above the dome of the diaphragm inferiorly through the pubic symphysis. Intravenous contrast was utilized. No oral was given. Delayed images were obtained through the bladder. Comparison: No prior abdominal imaging. Findings: Dilated appendix is seen with minimal surrounding inflammatory change compatible with appendicitis. Visualized lung bases show nothing acute. Liver shows no focal parenchymal abnormality. Spleen appears within normal limits. Adrenal glands show no nodule. Kidneys show symmetric contrast enhancement without hydronephrosis or mass. Pancreas is within normal limits. Gallbladder contains no calcified gallstones. Aorta shows no aneurysmal dilatation. No retroperitoneal adenopathy is seen. No pelvic mass or adenopathy is seen. Small amount of fluid is seen within the pelvis. Delayed images show contrast within the distal ureters and within the bladder. Bone window settings were reviewed which appear within normal limits for the patient's age. Impression: 1. Findings compatible with appendicitis. Small amount of fluid is seen within the pelvis most likely reactive. 2. No additional abnormality is seen on CT study of the abdomen and pelvis. Diagnostic code #5 I agree with preliminary report from [facility], finalized at 12/16/17, 11:23 PM Central Time
[2017-12-17] MEDS: Piperacillin/Tazobactam 4.5 GM in Sodium Chloride 0.9% 100 ML IV SCH ×2 (15:11→22:01)
--- NOTE | 2017-12-17 16:16 | CR ---
Chest: 2 views of the chest were obtained. Comparison: No prior chest x-ray was available. Findings: Small amount of free air is seen beneath the right hemidiaphragm. Mild atelectasis is noted within right mid and lower lung and left lower lung. Lungs otherwise are clear. Heart size and sternum are normal. Bony structures are unremarkable. Impression: 1. Mild areas of atelectasis and small amount of free air within the abdomen. 2. Nothing acute is otherwise seen on 2 view chest x-ray. Diagnostic code #2
[2017-12-17] MEDS ORDERED: Heparin Sodium 5,000 Units/ML Vial SUBCUT SCH (20:00)
--- NOTE | 2017-12-17 20:23 | PCM.PN ---
- General Info Date of Service: 12/17/17 Admission Dx/Problem (Free Text): Admission Diagnosis/Problem Admission Diagnosis/Problem Acute appendicitis Subjective Update: Post-op, the patient had some acute onset of chest pain and diaphoresis. Work- up was obtained, which included EKG (Sinus Arrhythmia), and cardiac panel ( normal). CXR was also performed, which was unremarkable. Stomach bubble noted. Patient's chest pain then resolved. Vitals signs unremarkable. He reports abdominal has much improved since surgery. - Patient Data Vitals - Most Recent: Last Vital Signs Temp 36.9 C 12/17/17 10:00 Pulse 99 12/17/17 14:14 Resp 12 12/17/17 10:00 BP 119/57 L 12/17/17 14:14 Pulse Ox 97 12/17/17 14:14 Weight - Most Recent: 96.615 kg I&O - Last 24 Hours: Intake & Output 12/17/17 12/17/17 12/17/17 06:59 14:59 22:59 Intake Total 843 544 8045 Output Total 400 50 650 Balance 661 587 7509 Lab Results Last 24 Hours: Laboratory Results - last 24 hr 12/16/17 12/16/17 12/16/17 Range/Units 20:48 20:50 20:50 WBC 14.06 H (4.23-9.07) K/mm3 RBC 5.12 (4.63-6.08) M/mm3 Hgb 15.8 (13.7-17.5) gm/L Hct 43.8 (40.1-51.0) % MCV 85.5 (79.0-92.2) fl MCH 30.9 (25.7-32.2) pg MCHC 36.1 H (32.2-35.5) g/dl RDW Std Deviation 39.5 (35.1-43.9) fL Plt Count 224 (163-337) K/mm3 MPV 9.0 L (9.4-12.3) fl Neut % (Auto) (34.0-67.9) % Lymph % (Auto) (21.8-53.1) % [place] % (Auto) (5.3-12.2) % Eos % (Auto) (0.8-7.0) Baso % (Auto) (0.1-1.2) % Neut # (Auto) (1.78-5.38) K/mm3 Lymph # (Auto) (1.32-3.57) K/mm3 [place] # (Auto) (0.30-0.82) K/mm3 Eos # (Auto) (0.04-0.54) K/mm3 Baso # (Auto) (0.01-0.08) K/mm3 Neutrophils % (Manual) 87 H (40-60) % Band Neutrophils % 0 (0-10) % Lymphocytes % (Manual) 11 L (20-40) % Atypical Lymphs % 0 % Monocytes % (Manual) 0 L (2-10) % Eosinophils % (Manual) 2 (0.8-7.0) % Basophils % (Manual) 0 L (0.2-1.2) Manual Slide Review Platelet Estimate Adequate RBC Morph Comment Normal Sodium 141 (136-145) mEq/L Potassium 3.7 (3.5-5.1) mEq/L Chloride 104 (98-107) mEq/L Carbon Dioxide 28 (21-32) mEq/L Anion Gap 12.7 (5-15) BUN 12 (7-18) mg/dL Creatinine 1.0 (0.7-1.3) mg/dL Est Cr Clr Drug Dosing 112.54 mL/min Estimated GFR (MDRD) > 60 (>60) mL/min BUN/Creatinine Ratio 12.0 L (14-18) Glucose 124 H (74-106) mg/dL Calcium 9.0 (8.5-10.1) mg/dL Total Bilirubin 1.8 H (0.2-1.0) mg/dL AST 20 (15-37) U/L ALT 30 (16-63) U/L Alkaline Phosphatase 61 (46-116) U/L CK-MB (CK-2) (0-3.6) ng/ml Troponin I (0.00-0.056) ng/mL C-Reactive Protein 0.2 (<1.0) mg/dL Total Protein 7.5 (6.4-8.2) g/dl Albumin 4.3 (3.4-5.0) g/dl Globulin 3.2 gm/dL Albumin/Globulin Ratio 1.3 (1-2) Urine Color Yellow (Yellow) Urine Appearance Clear (Clear) Urine pH 6.0 (5.0-8.0) Ur Specific [place] > or = 1.030 (1.005-1.030) Urine Protein Trace H (Negative) Urine Glucose (UA) Negative (Negative) Urine Ketones Trace H (Negative) Urine Occult Blood Negative (Negative) Urine Nitrite Negative (Negative) Urine Bilirubin Negative (Negative) Urine Urobilinogen 0.2 (0.2-1.0) Ur Leukocyte Esterase Negative (Negative) Urine RBC Not seen (0-5) /hpf Urine WBC 0-5 (0-5) /hpf Ur Epithelial Cells 0-5 (0-5) /hpf Urine Bacteria Few (FEW) /hpf Urine Mucus Not seen (FEW) /hpf 12/17/17 12/17/17 Range/Units 14:05 14:05 WBC 14.56 H (4.23-9.07) K/mm3 RBC 5.02 (4.63-6.08) M/mm3 Hgb 15.6 (13.7-17.5) gm/L Hct 43.4 (40.1-51.0) % MCV 86.5 (79.0-92.2) fl MCH 31.1 (25.7-32.2) pg MCHC 35.9 H (32.2-35.5) g/dl RDW Std Deviation 40.1 (35.1-43.9) fL Plt Count 248 (163-337) K/mm3 MPV 9.1 L (9.4-12.3) fl Neut % (Auto) 91.0 H (34.0-67.9) % Lymph % (Auto) 6.5 L (21.8-53.1) % [place] % (Auto) 2.2 L (5.3-12.2) % Eos % (Auto) 0.1 L (0.8-7.0) Baso % (Auto) 0.1 (0.1-1.2) % Neut # (Auto) 13.25 H (1.78-5.38) K/mm3 Lymph # (Auto) 0.95 L (1.32-3.57) K/mm3 [place] # (Auto) 0.32 (0.30-0.82) K/mm3 Eos # (Auto) 0.01 L (0.04-0.54) K/mm3 Baso # (Auto) 0.01 (0.01-0.08) K/mm3 Neutrophils % (Manual) (40-60) % Band Neutrophils % (0-10) % Lymphocytes % (Manual) (20-40) % Atypical Lymphs % % Monocytes % (Manual) (2-10) % Eosinophils % (Manual) (0.8-7.0) % Basophils % (Manual) (0.2-1.2) Manual Slide Review Abnormal smear Platelet Estimate RBC Morph Comment Sodium 139 (136-145) mEq/L Potassium 3.9 (3.5-5.1) mEq/L Chloride 103 (98-107) mEq/L Carbon Dioxide 24 (21-32) mEq/L Anion Gap 15.9 H (5-15) BUN 12 (7-18) mg/dL Creatinine 1.2 (0.7-1.3) mg/dL Est Cr Clr Drug Dosing 93.78 mL/min Estimated GFR (MDRD) > 60 (>60) mL/min BUN/Creatinine Ratio 10.0 L (14-18) Glucose 146 H (74-106) mg/dL Calcium 8.8 (8.5-10.1) mg/dL Total Bilirubin 2.7 H (0.2-1.0) mg/dL AST 15 (15-37) U/L ALT 25 (16-63) U/L Alkaline Phosphatase 55 (46-116) U/L CK-MB (CK-2) 1.9 (0-3.6) ng/ml Troponin I < 0.017 (0.00-0.056) ng/mL C-Reactive Protein (<1.0) mg/dL Total Protein 7.1 (6.4-8.2) g/dl Albumin 3.7 (3.4-5.0) g/dl Globulin 3.4 gm/dL Albumin/Globulin Ratio 1.1 (1-2) Urine Color (Yellow) Urine Appearance (Clear) Urine pH (5.0-8.0) Ur Specific [place] (1.005-1.030) Urine Protein (Negative) Urine Glucose (UA) (Negative) Urine Ketones (Negative) Urine Occult Blood (Negative) Urine Nitrite (Negative) Urine Bilirubin (Negative) Urine Urobilinogen (0.2-1.0) Ur Leukocyte Esterase (Negative) Urine RBC (0-5) /hpf Urine WBC (0-5) /hpf Ur Epithelial Cells (0-5) /hpf Urine Bacteria (FEW) /hpf Urine Mucus (FEW) /hpf Med Orders - Current: Current Medications Hydromorphone HCl (Dilaudid) 0.5 mg IVPUSH Q2H PRN PRN Reason: Pain Last Admin: 12/17/17 06:42 Dose: 0.5 mg Piperacillin Sod/Tazobactam (Sod 4.5 gm/ Sodium Chloride) 100 mls @ 25 mls/hr IV Q8H LG Last Admin: 12/17/17 15:11 Dose: 25 mls/hr Ondansetron HCl (Zofran) 4 mg IV Q4H PRN PRN Reason: Nausea/Vomiting Oxycodone/Acetaminophen (Percocet 325-5 Mg) 1 - 2 tab PO Q4H PRN PRN Reason: Pain Last Admin: 12/17/17 16:07 Dose: 2 tab Sodium Chloride (Saline Flush) 10 ml FLUSH ASDIRECTED PRN PRN Reason: Keep Vein Open Last Admin: 12/16/17 20:51 Dose: 10 ml Discontinued Medications Bupivacaine HCl (Marcaine 0.25%) Confirm Administered Dose 30 ml .ROUTE .STK- MED ONE Stop: 12/17/17 07:07 Last Admin: 12/17/17 08:31 Dose: 9.5 ml Bupivacaine HCl (Marcaine 0.5%) Confirm Administered Dose 30 ml .ROUTE .STK-MED ONE Stop: 12/17/17 07:57 Cefazolin Sodium (Ancef) Confirm Administered Dose 2 gm .ROUTE .STK-MED ONE Stop: 12/17/17 07:16 Dexamethasone (Dexamethasone) Confirm Administered Dose 8 mg .ROUTE .STK-MED ONE Stop: 12/17/17 07:17 Diphenhydramine HCl (Benadryl) 25 mg IVPUSH Q6H PRN PRN Reason: Pruritis Stop: 12/17/17 18:00 Ephedrine Sulfate (Ephedrine Sulfate) 5 mg IVPUSH ASDIRECTED PRN PRN Reason: Hypotension Stop: 12/17/17 18:00 Fentanyl (Sublimaze) Confirm Administered Dose 250 mcg .ROUTE .STK-MED ONE Stop: 12/17/17 07:16 Fentanyl (Sublimaze) 50 mcg IVPUSH Q5M PRN PRN Reason: Pain Stop: 12/17/17 18:00 Glycopyrrolate () Confirm Administered Dose 1 mg .ROUTE .STK-MED ONE Stop: 12/17/17 09:02 Haloperidol Lactate (Haldol) 1 mg IVPUSH ONETIME ONE Stop: 12/17/17 08:44 Last Admin: 12/17/17 12:04 Dose: Not Given Heparin Sodium (Porcine) (Heparin Sodium) 5,000 units SUBCUT Q8H LG Last Admin: 12/17/17 20:14 Dose: Not Given Hydromorphone HCl (Dilaudid) 1 mg IVPUSH ONETIME ONE Stop: 12/16/17 20:40 Last Admin: 12/16/17 20:50 Dose: 1 mg Hydromorphone HCl (Dilaudid) 0.5 mg IVPUSH ONETIME ONE Stop: 12/16/17 22:17 Last Admin: 12/16/17 22:27 Dose: 0.5 mg Hydromorphone HCl (Dilaudid) 0.5 mg IVPUSH ONETIME ONE Stop: 12/16/17 23:00 Last Admin: 12/17/17 00:52 Dose: 0.5 mg Hydromorphone HCl (Dilaudid) 0.5 mg IVPUSH ASDIRECTED PRN PRN Reason: Severe Pain Stop: 12/17/17 18:00 Lactated Ringer's (Ringers, Lactated) 1,000 mls @ 999 mls/hr IV .BOLUS ONE Stop: 12/16/17 21:39 Last Admin: 12/16/17 20:50 Dose: 999 mls/hr Piperacillin Sod/Tazobactam (Sod 4.5 gm/ Sodium Chloride) 100 mls @ 200 mls/hr IV ONETIME ONE Stop: 12/16/17 23:00 Last Admin: 12/16/17 22:44 Dose: 200 mls/hr Lactated Ringer's (Ringers, Lactated) 1,000 mls @ 150 mls/hr IV .BOLUS ONE Stop: 12/17/17 05:11 Last Admin: 12/16/17 23:15 Dose: 150 mls/hr Piperacillin Sod/Tazobactam (Sod 4.5 gm/ Sodium Chloride) 100 mls @ 25 mls/hr IV ONETIME ONE Stop: 12/17/17 10:59 Last Admin: 12/17/17 06:18 Dose: 25 mls/hr Lactated Ringer's (Ringers, Lactated) 1,000 mls @ 100 mls/hr IV ASDIRECTED LG Sodium Chloride (Normal Saline) 1,000 mls @ 100 mls/hr IV ASDIRECTED LG Last Admin: 12/17/17 06:18 Dose: 100 mls/hr Lidocaine HCl (Xylocaine-Mpf 1%) Confirm Administered Dose 4 mls @ as directed .ROUTE .STK-MED ONE Stop: 12/17/17 08:08 Lactated Ringer's (Ringers, Lactated) Confirm Administered Dose 1,000 mls @ as directed .ROUTE .STK-MED ONE Stop: 12/17/17 08:40 Lactated Ringer's (Ringers, Lactated) Confirm Administered Dose 1,000 mls @ as directed .ROUTE .STK-MED ONE Stop: 12/17/17 08:40 Iopamidol (Isovue-300 (61%)) 125 ml IVPUSH ONETIME ONE Stop: 12/16/17 21:57 Last Admin: 12/16/17 22:08 Dose: 125 ml Ketorolac Tromethamine (Toradol) Confirm Administered Dose 30 mg .ROUTE .STK- MED ONE Stop: 12/17/17 07:17 Lidocaine/Epinephrine (Xylocaine 1% With Epinephrine 1:100,000) Confirm Administered Dose 20 ml .ROUTE .STK-MED ONE Stop: 12/17/17 07:07 Last Admin: 12/17/17 08:31 Dose: 9.5 ml Meperidine HCl (Meperidine) 12.5 mg IVPUSH ONETIME PRN PRN Reason: Shivering Stop: 12/17/17 18:00 Metoclopramide HCl (Reglan) 7.5 mg IVPUSH ONETIME ONE Stop: 12/16/17 20:40 Last Admin: 12/16/17 20:50 Dose: 7.5 mg Midazolam HCl (Versed 1 Mg/Ml) Confirm Administered Dose 2 mg .ROUTE .STK-MED ONE Stop: 12/17/17 07:16 Neostigmine Methylsulfate (Neostigmine) Confirm Administered Dose 5 mg .ROUTE .STK-MED ONE Stop: 12/17/17 09:02 Ondansetron HCl (Zofran) 4 mg IVPUSH ONETIME ONE Stop: 12/17/17 00:55 Last Admin: 12/17/17 00:56 Dose: 4 mg Ondansetron HCl (Zofran) Confirm Administered Dose 4 mg .ROUTE .STK-MED ONE Stop: 12/17/17 07:16 Propofol (Diprivan 20 Ml) Confirm Administered Dose 200 mg .ROUTE .STK-MED ONE Stop: 12/17/17 07:16 Propofol (Diprivan 20 Ml) Confirm Administered Dose 200 mg .ROUTE .STK-MED ONE Stop: 12/17/17 07:47 Rocuronium [place] (Zemuron) Confirm Administered Dose 50 mg .ROUTE .STK-MED ONE Stop: 12/17/17 07:20 Sodium Chloride (Saline Flush) 10 ml FLUSH ONETIME ONE Stop: 12/16/17 21:57 Last Admin: 12/16/17 22:09 Dose: 10 ml Succinylcholine Chloride (Succinylcholine In Ns Pf) Confirm Administered Dose 100 mg .ROUTE .STK-MED ONE Stop: 12/17/17 07:20 - Exam General: Alert, Oriented, Cooperative Lungs: Clear to Auscultation, Normal Respiratory Effort Cardiovascular: Regular Rate, Regular Rhythm, No Murmurs GI/Abdominal Exam: Soft, Tender (appropriately tender), Other (incisions C/D/I with Dermabond.) Extremities: Normal Inspection - Problem List & Annotations (1) Appendicitis SNOMED Code(s): 53115986 Code(s): K37 - UNSPECIFIED APPENDICITIS Status: Acute Current Visit: Yes - Problem List Review Problem List Initiated/Reviewed/Updated: Yes - My Orders Last 24 Hours: My Active Orders 12/17/17 00:47 Patient Status [ADT] Routine Oxygen Therapy [RC] PRN VTE/DVT Education [RC] DAILY Vital Signs [RC] Q4HR Ondansetron [Zofran] 4 mg IV Q4H PRN Resuscitation Status Routine 12/17/17 00:48 Sequential Compression Device [OM.PC] Per Unit Routine 12/17/17 00:49 HYDROmorphone [Dilaudid] 0.5 mg IVPUSH Q2H PRN 12/17/17 01:49 Up ad [place] [RC] ASDIRECTED 12/17/17 08:00 Schedule Procedure [COMM] Urgent 12/17/17 11:00 Acetaminophen/oxyCODONE [Percocet 325-5 MG] 1 - 2 tab PO Q4H PRN 12/17/17 13:53 EKG 12 Lead [EK] Routine 12/17/17 15:00 Piperacillin/Tazobactam [Zosyn] 4.5 gm Sodium Chloride 0.9% [Normal Saline] 100 ml IV Q8H 12/17/17 20:18 Ready for Discharge [RC] PER UNIT ROUTINE 12/17/17 Lunch Regular Diet [DIET] 12/19/17 07:00 CBC W/O DIFF,HEMOGRAM [HEME] MOTH@0700 12/23/17 07:00 CBC W/O DIFF,HEMOGRAM [HEME] MOTH@69912/26/17 07:00 CBC W/O DIFF,HEMOGRAM [HEME] MOTH@0700 12/30/17 07:00 CBC W/O DIFF,HEMOGRAM [HEME] MOTH@00 01/02/18 07:00 CBC W/O DIFF,HEMOGRAM [HEME] MOTH@00 01/06/18 07:00 CBC W/O DIFF,HEMOGRAM [HEME] MOTH@0700 - Plan Plan:: 27 yo male, h/o HTN, POD#1 s/p lap appendectomy for acute suppurative appendicitis. - No concern for cardiac or pulmonary etiology for patient's chest pain, which has resolved. Potentially related to reflux or diaphragmatic irritation from stomach/CO2 gas. Patient reassurance given. - Continue IV Zosyn for 24 hours post-op. - OK for discharge home in AM. Post-op care instructions were given to the patient and his . Ej James M.D., F.A.C.S. General Surgery Pager: [phone]
[2017-12-18] MEDS: Acetaminophen/oxyCODONE 325-5 MG Tab PO PRN ×2 (00:58→08:09)
[2017-12-18 04:35] VITALS: BP 112/52
--- NOTE | 2017-12-18 08:22 | PCM48HPAN ---
Post Anesthesia Note - EVALUATION WITHIN 48HRS OF ANESTHETIC Vital Signs in Normal Range: Yes Patient Participated in Evaluation: Yes Respiratory Function Stable: Yes Airway Patent: Yes Cardiovascular Function Stable: Yes Hydration Status Stable: Yes Pain Control Satisfactory: Yes Nausea and Vomiting Control Satisfactory: Yes Mental Status Recovered: Yes Pulse Rate: 57 Resp Rate: 14 Temperature: 97.9 F Blood Pressure: 112/52
== END 2017-12-18 10:50 | disposition home or self-care (01) ==
LOC: JD.ED 20:20 → JD.MS 12-17 00:47
PROVIDERS: ADMIT Student in an Organized Health Care Education/Training Program; ATTEND Student in an Organized Health Care Education/Training Program
DX: K35.3 Acute appendicitis with localized peritonitis (principal); I10 Essential (primary) hypertension; Z79.899 Other long term (current) drug therapy
CPT/HCPCS: 36415; 44970; 71046; 74177; 80053; 81001; 82553; 84484; 85007; 85025; 85027; 86140; 93005; 96361; 96365; 96366; 96375; 96376; 99285; A9270; G0378; J0330; J1100; J1170; J1885; J2250; J2405; J2543; J2704; J2710; J2765; J3010; J3490; J7030; J7040; J7050; J7120; Q9967; 99284; J0690; J2001